=== PATIENT | male | born 1980 | race Two or more races ===

== ENCOUNTER 2017-10-21 01:11 | Emergency (ER) | payer SELFPAY ==
[~2017-10-21] VITALS: Ht 167.6 cm; Wt 81.0 kg
[2017-10-21 01:15] VITALS: BP 122/87
== END 2017-10-21 01:28 | disposition left against medical advice (07) ==
LOC: ER 01:20
DX: S41.112A Laceration without foreign body of left upper arm, initial encounter (principal); Z53.21 Procedure and treatment not carried out due to patient leaving prior to being seen by health care provider; X58.XXXA Exposure to other specified factors, initial encounter; Y93.89 Activity, other specified; Y92.89 Other specified places as the place of occurrence of the external cause; Y99.8 Other external cause status